=== PATIENT | male | born 1950 | race Caucasian/White ===

== ENCOUNTER 2017-07-06 17:00 | Emergency (ER) | payer MEDICARE ==
--- NOTE | 2017-07-07 09:07 | EDM.PDOC ---
ED HPI GENERAL MEDICAL PROBLEM - General Chief Complaint: Abdominal Pain Stated Complaint: STOMACH PAIN Time Seen by Provider: 07/06/17 17:00 Source of Information: Reports: Patient - History of Present Illness INITIAL COMMENTS - FREE TEXT/NARRATIVE: This is a 66yo M who recently was seen in clinic for epigastric/abdominal discomfort. Patient has been having abdominal pain that comes and goes and more recently nausea. He has not vomited, denies fever or chills, no sob or chest pain. Patient has had small BM daily. He has decreased appetite but still eating well and drinking very well. Denies prior history of abdominal surgery but has had a duodenal ulcer in high school. He was recently scheduled for his first colonoscopy. He has not seen a PCP in over 15 yrs prior to Jun 30. Onset: Gradual Duration: Week(s):, Waxing/Waning Location: Reports: Abdomen Quality: Reports: Ache Severity: Severe Improves with: Reports: None Worsens with: Reports: None Associated Symptoms: Reports: Loss of Appetite, Nausea/Vomiting abdmonial pain Pain Score (Numeric/FACES): 4 - Related Data Allergies Allergy/AdvReac Type Severity Reaction Status Date / Time No Known Allergies Allergy Verified 07/06/17 17:13 Home Meds: Home Meds NK [No Known Home Meds] 07/06/17 [History] Past Medical History - Past Surgical History HEENT Surgical History: Reports: Tonsillectomy Male Surgical History: Reports: Vasectomy ED ROS GENERAL - Review of Systems Review Of Systems: ROS reveals no pertinent complaints other than HPI. ED EXAM, GI/ABD - Physical Exam Exam: See Below Exam Limited By: No Limitations General Appearance: Alert, WD/WN, No Apparent Distress Eyes: Bilateral: EOMI Ears: Normal External Exam Nose: Normal Inspection Throat/Mouth: Normal Inspection Head: Atraumatic, Normocephalic Neck: Normal Inspection Respiratory/Chest: No Respiratory Distress, Lungs Clear, Normal Breath Sounds, No Accessory Muscle Use, Chest Non-Tender Cardiovascular: Normal Peripheral Pulses, Regular Rate, Rhythm GI/Abdominal Exam: Soft, Non-Tender, No Distention, No Abnormal Bruit, No Mass, Abnormal Bowel Sounds (decrease Bowel sounds throughout) Back Exam: Normal Inspection Extremities: Normal Inspection Neurological: Alert, Oriented, CN II-XII Intact Psychiatric: Normal Affect, Normal Mood Skin Exam: Warm, Dry, Intact Course - Vital Signs Last Recorded V/S: Last Vital Signs Temp 35.8 C 07/06/17 17:08 Pulse 59 L 07/06/17 17:08 Resp 16 07/06/17 17:08 BP 130/78 07/06/17 17:08 Pulse Ox 98 07/06/17 17:08 - Orders/Labs/Meds Orders: Active Orders 24 hr Category Date Time Status Abdomen Pelvis wo Cont [CT] Stat Exams 07/06/17 17:16 Taken Labs: Laboratory Tests 07/06/17 07/06/17 Range/Units 17:16 17:25 WBC 6.7 (4.0-11.0) K/uL RBC 4.91 (4.50-6.50) M/uL Hgb 15.7 (13.0-18.0) g/dL Hct 43.4 (40.0-54.0) % MCV 88 (76-96) fL MCH 32.0 (27.0-32.0) pg MCHC 36.2 H (31.0-35.0) g/dL RDW 12.2 (11.0-16.0) % Plt Count 160 (150-400) K/uL MPV 10.1 H (6.0-10.0) fL Neut % (Auto) 57.6 (45.0-70.0) % Lymph % (Auto) 19.6 L (20.0-40.0) % [place] % (Auto) 9.3 (3.0-10.0) % Eos % (Auto) 12.9 H (1.0-5.0) % Baso % (Auto) 0.6 H (0.0-0.5) % Neut # (Auto) 3.84 (2.00-7.50) K/uL Lymph # (Auto) 1.31 L (1.50-4.00) K/uL [place] # (Auto) 0.62 (0.20-0.80) K/uL Eos # (Auto) 0.86 H (0.04-0.40) K/uL Baso # (Auto) 0.04 (0.02-0.10) K/uL Urine Color Yellow Urine Appearance Clear (CLEAR) Urine pH 7.0 (5.0-8.0) Ur Specific [place] 1.020 (1.003-1.030) Urine Protein Negative (NEGATIVE) mg/dL Urine Glucose (UA) Negative (NEGATIVE) mg/dL Urine Ketones 40 H (NEGATIVE) mg/dL Urine Occult Blood Negative (NEGATIVE) Urine Nitrite Negative (NEGATIVE) Urine Bilirubin Negative (NEGATIVE) Urine Urobilinogen 0.2 (0.2-1.0) E.U./dL Ur Leukocyte Esterase Negative (NEGATIVE) Urine RBC 0-5 H /HPF Urine WBC 0-5 H /HPF Ur Squamous Epith Cells Few /HPF Departure - Departure Time of Disposition: 18:30 Disposition: DC/Tfer to Acute Hospital 02 Condition: Good Clinical Impression: Small bowel obstruction - Discharge Information Referrals: PCP,None [Primary Care Provider] - Forms: ED Department Discharge, ED Return to Work/School Form - Problem List Review Problem List Initiated/Reviewed/Updated: Yes - My Orders Last 24 Hours: My Active Orders 07/06/17 17:16 Abdomen Pelvis wo Cont [CT] Stat - Assessment/Plan Last 24 Hours: My Active Orders 07/06/17 17:16 Abdomen Pelvis wo Cont [CT] Stat Plan: Discussed imaging and plans with Dr. Adams and Dr. Larson. Patient accepted for transfer and sent via BLS. Patient counseled on management and agrees with plan of care.
--- NOTE | 2017-07-07 10:24 | CT ---
DATE OF SERVICE: 07/06/17 CLINICAL DATA: abdominal pain UNENHANCED ABDOMEN AND PELVIC CT: Multislice acquisition through the abdomen and pelvis without IV or oral contrast was performed. No priors. The lung bases are clear. The stomach is fluid and gas-filled and moderately distended. A gastric outlet obstruction cannot be excluded. There are multiple fluid-filled loops of small bowel within the abdomen and pelvis. These are distended and contain air-fluid levels. The findings are consistent with a small bowel ileus or obstruction. The appendix is not visualized. No definite evidence of appendicitis. There is a moderate amount of gas and stool noted throughout the colon. The unenhanced liver appears normal. The gallbladder is contracted but otherwise appears unremarkable. The spleen appears normal. The pancreas appears normal. The right and left adrenals are unremarkable. The right and left kidneys appear normal. No nephrocalcinosis or nephrolithiasis. No hydronephrosis or hydroureter. There is a small amount of fluid within the bladder. There is apparent diffuse bladder wall thickening. This is probably related to nondistension. Cystitis should be considered. The prostate is enlarged. No free air. No free fluid. No adenopathy. No aortic aneurysm. IMPRESSION: Abnormal exam. See above. [id number] MTDD
== END 2017-07-06 19:45 ==
LOC: LB.ED 17:00
DX: K56.609 Unspecified intestinal obstruction, unspecified as to partial versus complete obstruction (principal)
CPT/HCPCS: 36415; 74176; 81001; 85025; 99285; A0425; A0429

== ENCOUNTER 2018-03-29 18:15 | Emergency (ER) | payer MEDICARE ==
--- NOTE | 2018-03-30 00:41 | ER ---
HPI: A 67-year-old male here with complaints of a dog bite to both sides of his chin. The patient and his are here. 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 The dog was very friendly. The dog is current on its shots. They were in the process of loading the dog in the car and the patient went to help the dog get in the car and the dog turned around quickly grabbed the patient's chin and his mouth and shook his head a couple of times and then he let go. The patient states that there was a puncture wound on both sides that was bleeding quite significantly. Initially, they did hold pressure to the area and after while the bleeding slowed down and stopped on the puncture wound on the right side and just some small seepage on the left side. The patient noticed some swelling around the puncture wound on the left side of his lower jaw as well. Again, this is a new dog to them that they were picking up at a kennel in [place] and they have paperwork stating the dog is current on its shots OBJECTIVE: GENERAL APPEARANCE: The patient is awake and alert. He is in no obvious respiratory distress. The patient states he is not allergic to any medications. Examining the patient's face reveals a small puncture wound on the left side of his chin just above the lower jaw that is about 0.75 cm in length. There is no bleeding from the wound at this time. Examining a small laceration on the right side of the patient's chin just above the lower jaw reveals a slightly larger almost a laceration that is 1.5 cm in length. There is just a small amount of seeping present at this site. It is just mildly gaping at this time. Oral exam, the patient does have some bruising along the teeth of the lower jaw on both sides on the buccal mucosa. I do not see any active bleeding, just bruising. DIAGNOSIS: Dog bite to face. TREATMENT PLAN: I advised the patient that these wounds are not big enough to suture, it will be much better if they were left alone and allow to heal by secondary intention due to risk of infection. The patient is to be started on Augmentin 875 b.i.d. He is to apply ice packs frequently tonight for 10 to 15 minutes every couple of hours while awake and he is to monitor for any worsening of symptoms. Followup should be within the next day or so if his condition should get worse. CRS/MODL /[id number]
== END 2018-03-29 19:20 | disposition home or self-care (01) ==
LOC: LB.ED 18:15
DX: S01.85XA Open bite of other part of head, initial encounter (principal); W54.0XXA Bitten by dog, initial encounter
CPT/HCPCS: 99283